=== PATIENT | male | born 1975 | race Caucasian/White ===

== ENCOUNTER 2022-02-11 13:28 | Emergency (ER) | payer SELFPAY ==
[2022-02-11 13:44] VITALS: BP 126/82; PULSE 67; TEMP 36.7; O2SAT 96; BMI 28.1
--- NOTE | 2022-02-11 13:53 | ED_ITS ---
HPI - General Adult General Time Seen by Provider: 13:54 Date Seen: 02/11/22 Chief complaint: Abdominal Pain Stated complaint: Possible Hernia Time Seen by Provider: 02/11/22 13:52 Source: patient and RN notes reviewed Mode of arrival: ambulatory Limitations: no limitations History of Present Illness HPI narrative: Patient is a 46-year-old male coming in with concern of possible left inguinal hernia. He is been having pain in bulging on the left side. He does do a lot of exercise and weightlifting and has not been able to do so the last couple weeks due to his symptoms. He feels when he standing up he has to hang onto his left groin otherwise it is more painful. Feels like the testicle is a little bit more high-riding on that side but otherwise is not noting testicular pain. There is no urinary symptoms with this. Last night at work he noted the swelling was quite prominent in that left lower groin/inguinal region. He is not had any nausea vomiting or fever with this. He has had an abdominal approach for lumbar back surgery but otherwise no other abdominal surgery, no known prior hernias. He cannot remember any inciting event or episode that this started after. It has been there for couple weeks. Initially few weeks ago he felt a little dizzy when he 1st noticed it, was having a lot of pain at the time. Related Data Allergies Allergy/AdvReac Type Severity Reaction Status Date / Time Penicillins Allergy Verified 02/11/22 13:44 Review of Systems Status of ROS: Reports: 6 or more systems reviewed and unremarkable except as noted in History and below PFSH PFS Social History Smoking Status: Current every day smoker What tobacco products do you use: cigarettes Years smoked: 34 Do you use any of these nicotine containing products: Vaping Products Second hand tobacco smoke exposure: Yes How often do you have a drink containing alcohol: never How often do you have six or more drinks on one occasion: Never AUDIT-C Alcohol total score: 0 Non-prescribed substance use: denies use service: No Exam Const: Vital Signs, click to edit/add: Vital Signs - 24 hr 02/11/22 13:44 Temperature 98.1 F Pulse Rate [Pulse Oximeter] 67 Blood Pressure [Ri ght Upper Arm] 126/82 Pulse Oximetry 96 Oxygen Delivery Me thod Room Air Documenting provider has reviewed patient's vital signs: yes Common normals: no apparent distress, average body habitus, oriented x3, no limitations, healthy appearing, alert and well nourished General appearance: cooperative, comfortable (Lying flat on the ED bed) and well kempt HENMT: Common normals: normocephalic, head/scalp atraumatic and hearing grossly normal bilaterally Head and scalp: normocephalic and atraumatic Eye: Common normals: PERRL, EOMs intact bilaterally, conjunctivae normal and no scleral icterus Conjunctiva: conjunctiva(e) normal Pupil: PERRL Neck & C-Spine: Common normals: full ROM, no lymphadenopathy and supple Resp: Common normals: normal respiratory effort, no retractions, no use of accessory muscles and clear to auscultation bilaterally Auscultation: clear to auscultation bilaterally Cardio: Common normals: regular rate, regular rhythm, S1 normal heart sound, S2 normal heart sound, no gallops and no clicks Rate: regular rate Rhythm: regular rhythm Heart sounds: S1 normal and S2 normal GI: Common normals: Normal to inspection, nondistended, normoactive bowel sounds present, soft to palpation, non-tender, no hepatosplenomegaly and no masses Palpation: soft and no hepatosplenomegaly : Common normals: testes normal, scrotum normal, no scrotal swelling and no hernias present (No palpable hernia on either side, examined lying and standing.) Neuro: Common normals: oriented x3 and gait normal Sensorium/orientation: alert Psych: Appearance: well kempt Course Course Hospital Course: Will obtain a scrotal ultrasound. Patient understands that he may need follow- up with General surgery. Does not seem like this is actually something to do with the testes or epididymis. He is pointing to pain more in the inguinal canal region where he is having symptoms. He certainly could have a hernia despite my a inability to palpated at this time, certainly does not rule out a hernia. Reevaluation(s) Reevaluation #1: Reviewed with patient the ultrasound is normal at this time. We did discuss other alternate etiologies including such things as a muscle pole. He could certainly have muscular injury. Although clinically on examination does not seem like it. I think if he has ongoing symptoms, would have 1 of her surgeons actually do a clinical exam on him. In the meantime he understands if he is worsening, develops the swelling in this inguinal region, has any associated vomiting or fever, would return to the ER for further evaluation. Time: 15:41 Vital Signs Vital signs: Initial Vital Signs Temperature 98.1 F 02/11/22 13:44 Temperature Source Temporal Artery Scan 02/11/22 13:44 Pulse Rate 67 02/11/22 13:44 Pulse Rhythm 02/11/22 13:44 Blood Pressure 126/82 02/11/22 13:44 Blood Pressure Mean 96 02/11/22 13:44 Blood Pressure Position Supine 02/11/22 13:44 Pulse Oximetry 96 02/11/22 13:44 Oxygen Delivery Method 02/11/22 13:44 Vital Signs Temperature 98.1 F 02/11/22 13:44 Pulse Rate 67 02/11/22 13:44 Blood Pressure 126/82 02/11/22 13:44 Pulse Oximetry 96 02/11/22 13:44 Oxygen Delivery Method 02/11/22 13:44 Temperature 98.1 F 02/11/22 13:44 Pulse Rate 67 02/11/22 13:44 Blood Pressure 126/82 02/11/22 13:44 Pulse Oximetry 96 02/11/22 13:44 Oxygen Delivery Method 02/11/22 13:44 Medical Decision Making Imaging Data Ultrasound scrotum: Attestation: I have reviewed the pertinent imaging results. Radiologist's impression: Patient: BERONICA DUENAS Facility:?[facility] Patient ID:?[id number] Site Patient ID:?[id number]. Site :?[id number] Study:?US Testicle -02/11/2022 3:00:51 PM Ordering Physician:Kristen Watson Final Report: Indication: Left inguinal/groin pain Technique: Sonography of the scrotum and its contents was performed. The left inguinal area was also specifically study. Grayscale and Doppler interrogation was performed Comparison: None Findings: The testes are normal in size. Echogenicity is normal. There is no focal mass. The right testis measures 4.7 x 2.3 x 3.5 centimeters and the left testis measures 4.6 x 2.3 x 3.1 centimeters. Normal blood flow is noted without evidence of hyperemia or evidence of torsion. The epididymides appear normal. No varicocele. No significant appearing hydrocele appearing No mass or hernia visualized in the left inguinal area at the area indicated to be painful by the patient Impression: Normal exam Dictated by Enrique Yanez MD @ 02/11/2022 3:35:55 PM (Electronic Signature) Critical Care Time Critical Care Time Critical Care Time: No Discharge Plan Discharge Clinical Impression: Left inguinal pain Patient Disposition: Home, Self-Care Condition: Stable Instructions: Inguinal Hernia (ED) Additional Instructions: Activity as tolerated, would not do any strenuous weightlifting until further evaluated. Contact the clinic to be scheduled to see our general surgeon for further evaluation. If the general surgeon does not feel that there is any reason for underlying inguinal hernia, than urology consult may be needed. Your primary care provider would half to schedule you to see Urology. Clinic number is [phone]. Stand Alone Forms: [employer] Info Instructions
--- NOTE | 2022-02-11 14:01 | CRLHL7_ITS ---
For Patients: As a result of the Century Cures Act, medical imaging exams and procedure reports are released immediately into your electronic medical record. You may view this report before your referring provider. If you have questions, please contact your health care provider. Indication: Left inguinal/groin pain Technique: Sonography of the scrotum and its contents was performed. The left inguinal area was also specifically study. Grayscale and Doppler interrogation was performed Comparison: None Findings: The testes are normal in size. Echogenicity is normal. There is no focal mass. The right testis measures 4.7 x 2.3 x 3.5 centimeters and the left testis measures 4.6 x 2.3 x 3.1 centimeters. Normal blood flow is noted without evidence of hyperemia or evidence of torsion. The epididymides appear normal. No varicocele. No significant appearing hydrocele appearing No mass or hernia visualized in the left inguinal area at the area indicated to be painful by the patient Impression: Normal exam Dictated by Enrique Yanez MD @ 02/11/2022 3:35:55 PM (Electronically Signed)
== END 2022-02-11 15:53 | disposition home or self-care (01) ==
PROVIDERS: Emergency Provider Family Medicine
DX: R10.30 Lower abdominal pain, unspecified (principal)
CPT/HCPCS: 76870; 93976; 99283

== ENCOUNTER 2022-02-23 02:57 | Emergency (ER) | payer SELFPAY ==
[2022-02-23 03:46] VITALS: BP 148/89; PULSE 76; RESP 16; TEMP 37.2; O2SAT 99
--- NOTE | 2022-02-23 03:55 | ED.GENADULT ---
HPI - General Adult General Time Seen by Provider: 03:55 Date Seen: 02/23/22 Chief complaint: Urogenital Problems, Male Stated complaint: Hernia Time Seen by Provider: 02/23/22 03:47 Source: patient Mode of arrival: ambulatory Limitations: no limitations History of Present Illness HPI narrative: 46-year-old male who comes in today with left groin and inguinal pain. This been off and on for the last several weeks. Patient came in today because he was concerned that he has a strangulated or incarcerated hernia. He reports alternating constipation and diarrhea, no urinary symptoms, no testicular pain. He says he feels like he has a lump in his scrotum that has a variable size. He he says it seems bigger in the morning and then get some better. Denies any nausea vomiting. No abdominal distention or abdominal pain. This previously seen for this and had a testicular ultrasound done. Reviewed those results, negative ultrasound. Related Data Home Medications Medication Instructions Recorded Confirmed No Known Home Medications 02/23/22 02/23/22 Allergies Allergy/AdvReac Type Severity Reaction Status Date / Time Penicillins Allergy Verified 02/11/22 13:44 Review of Systems Status of ROS: Reports: 10 or more systems reviewed and unremarkable except as noted in History and below [facility] Surgical History (Updated 02/23/22 @ 03:50 by Anamaria Hanna RN) Previous back surgery Social History Smoking Status: Current every day smoker What tobacco products do you use: cigarettes Smoking packs per day: 0.25 Smoking cigarettes per day: 5.0 Years smoked: 34 Smoking pack-years: 8.50 Do you use any of these nicotine containing products: Vaping Products Second hand tobacco smoke exposure: Yes How often do you have a drink containing alcohol: never How often do you have six or more drinks on one occasion: Never AUDIT-C Alcohol total score: 0 Non-prescribed substance use: denies use service: No Exam Narrative: Exam Narrative: General: Well-developed and well-nourished, no acute distress Head: Atraumatic and normocephalic Eyes: Pupils are equal reactive, extraocular motions intact, conjunctiva clear ENT: External nose and ears are normal, posterior pharynx without erythema or exudate Neck: No midline cervical tenderness, full spontaneous range of motion the neck, trachea midline, no adenopathy Heart: Regular rate and rhythm no murmurs or thrills Lungs: Clear to auscultation bilaterally without wheezes or crackles Abdomen: Soft, nontender, nondistended with active bowel sounds : Testicles palpable bilaterally with no tenderness or masses, no inguinal defect, no fluid or swelling along the spermatic cord on either side. The area where patient describes his lump is actually on the posterior scrotum, no mass palpable at this time. Musculoskeletal: No tenderness, deformity, or edema Neurologic: Awake, alert, and oriented x3, no gross focal neurologic deficits, cranial nerves intact as tested Psych: Mood and affect are appropriate Skin: No rashes Const: Vital Signs, click to edit/add: Vital Signs - 24 hr 02/23/22 03:46 Temperature 98.9 F Pulse Rate [Left P ulse Oximeter] 76 Respiratory Rate 16 Blood Pressure [Le ft Upper Arm] 148/89 H Pulse Oximetry 99 Oxygen Delivery Me thod Room Air Course Course Hospital Course: Patient seen and examined, prior records are reviewed. Patient concerned about a of the left hemiscrotum. On exam here, no testicular pain, tenderness, or mass to suggest testicular cancer or epididymitis. No inguinal swelling or tenderness. Area patient's pain is posterior scrotum, not really in the inguinal canal. This could represent a femoral hernia. Patient has follow-up with surgery next week. At this point, no indication of incarcerated nor strangulated hernia. Vital Signs Vital signs: Initial Vital Signs Temperature 98.9 F 02/23/22 03:46 Temperature Source Temporal Artery Scan 02/23/22 03:46 Pulse Rate 76 02/23/22 03:46 Respiratory Rate 16 02/23/22 03:46 Blood Pressure 148/89 H 02/23/22 03:46 Blood Pressure Mean 108 02/23/22 03:46 Blood Pressure Position Sitting 02/23/22 03:46 Pulse Oximetry 99 02/23/22 03:46 Oxygen Delivery Method 02/23/22 03:46 Vital Signs Temperature 98.9 F 02/23/22 03:46 Pulse Rate 76 02/23/22 03:46 Respiratory Rate 16 02/23/22 03:46 Blood Pressure 148/89 H 02/23/22 03:46 Pulse Oximetry 99 02/23/22 03:46 Oxygen Delivery Method 02/23/22 03:46 Temperature 98.9 F 02/23/22 03:46 Pulse Rate 76 02/23/22 03:46 Respiratory Rate 16 02/23/22 03:46 Blood Pressure 148/89 H 02/23/22 03:46 Pulse Oximetry 99 02/23/22 03:46 Oxygen Delivery Method 02/23/22 03:46 Medical Decision Making Medical Records Medical records reviewed: Yes I reviewed the patient's medical records Lab Data Lab results reviewed: Yes I reviewed the patient's lab results Discharge Plan Discharge Prescriptions: No Action No Known Home Medications Follow Up/Referrals: Provider,Not a Local [Primary Care Provider] -
== END 2022-02-23 04:18 | disposition home or self-care (01) ==
LOC: ED 04:08
PROVIDERS: Emergency Provider Family Medicine
DX: N50.82 Scrotal pain (principal)
CPT/HCPCS: 99282; 99283

== ENCOUNTER 2023-05-11 12:50 | Outpatient (CLI) | payer MEDICARE, SELFPAY ==
--- OUTSIDE RECORDS SUMMARY | 2023-05-11 12:52 | XMS_ITS | Clinical Summary ---
Author Name Unknown Organization [facility] Address [address] [place] [address]. [place] [address] Care Team Providers Care Patient Consumer Marketer Name Role Phone No Ref-Primary, Physician Primary Care Provider Emily Rucker MD Unavailable Allergies No known active allergies Medications No known medications Social History Tobacco Use Types Packs/Day Years Used Date Smoking Tobacco: Every Day Cigarettes Passive Smoke Exposure: Current Smokeless Tobacco: Never Tobacco Cessation:Ready to Q uit: No; Counseling Given: No Alcohol Use Standard Drinks/Week Comments Not Currently 0 (1 standard drink = 0.6 oz pur e alcohol) PHQ-2 Answer Date Recorded PHQ-2 Score 0 07/12/2022 Adolescent Education Answer Date Record ed Getting School Help Needed Not on file 12/25 Sex and Gender Information Value Date Recorded Sex Assigned at Not on file Gender Identity Not on file Sexual Orientation Not on file Last Filed Vital Signs Vital Sign Reading Time Taken Comments Blood Pressure 130/85 07/12/2022 8:43 AM CDT Pulse 85 07/12/2022 8:43 AM CDT Temperature 36.4 ??C (97.5 ??F) 07/12/2022 8:43 AM CD T Respiratory Rate 18 07/12/2022 8:43 AM CDT Oxygen Saturation 97% 07/12/2022 8:43 AM CDT Inhaled Oxygen Concentration - - Weight 87.6 kg (193 lb 3.2 oz) 07/12/2022 8:43 A M CDT Height 175.3 cm (5' 9) 07/12/2022 8:43 AM CDT Body Mass Index 28.53 07/12/2022 8:43 AM CDT Plan of Treatment Health Maintenance Due Date Last Done Comments ANNUAL REVIEW OF HM ORDERS 1973 CT COLONOGRAPHY 1973 FIT 1973 FLEX SIG 1973 HEPATITIS B IMMUNIZATION (1 of 3 - 3-dose series) 1973 NICOTINE/TOBACCO CESSATION COUNSELING Q 1 YR 1973 YEARLY PREVENTIVE VISIT 1973 sDNA (Cologuard) 1973 COVID-19 Vaccine (#1) 05/24/1974 Pneumococcal Vaccine: Pediatrics (0 to 5 Years) and At-Risk Patients (6 to 64 Years) (1 of 2 - PCV) 11/22/1979 COLONOSCOPY 11/22/1983 COLORECTAL CANCER SCREENING 11/22/1983 HIV SCREENING 1988 HEPATITIS C SCREENING 11/22/1991 DTAP/TDAP/TD IMMUNIZATION (1 - Tdap) 1998 LIPID 2008 INFLUENZA VACCINE (#1) 2022 ZOSTER IMMUNIZATION (1 of 2) 11/22/2023 ADVANCE CARE PLANNING 07/13/2027 07/12/2022 (Decline d) PHQ-2 (once per calendar year) Completed 07/12/2022 HPV IMMUNIZATION Aged Out No longer e ligible based on patient's age to complete this topic IPV IMMUNIZATION Aged Out No longer e ligible based on patient's age to complete this topic MENINGITIS IMMUNIZATION Aged Out No l onger eligible based on patient's age to complete this topic RSV MONOCLONAL ANTIBODY Aged Out No l onger eligible based on patient's age to complete this topic Care Teams Patient Consumer Marketer Relationship Specialty Start Date End Date No Ref-Primary, Physician PCP - General 07/12/22 Emily Rucker MD [address] [place] [address] Assigned PCP 06/16/22
--- OUTSIDE RECORDS SUMMARY | 2023-05-11 12:52 | XMS_ITS | Encounter Summary ---
Author Name Unknown Organization [facility] Address [address] [place] [address] Care Team Providers Care Dry Cell Assembly Supervisor Name Role Phone No Ref-Primary, Physician Primary Care Provider Emily Rucker MD Unavailable Encounter Details Date Type Department Care Team (Latest Contact Info) Description 07/12/2022 Travel Social History Tobacco Use Types Packs/Day Years Used Date Smoking Tobacco: Every Day Cigarettes Passive Smoke Exposure: Current Smokeless Tobacco: Never Alcohol Use Standard Drinks/Week Comments Not Currently 0 (1 standard drink = 0.6 oz pur e alcohol) PHQ-2 Answer Date Recorded PHQ-2 Score 0 07/12/2022 Sex and Gender Information Value Date Recorded Sex Assigned at Not on file Gender Identity Not on file Sexual Orientation Not on file COVID-19 Exposure Response Date Recorded In the last 10 days, have yo u been in contact with someone who was confirmed or suspected to have Coronavirus/COVID-19? No / Unsure 07/12/2022 8:38 AM CDT documented as of this encounter Plan of Treatment Not on file documented as of this encounter Visit Diagnoses Not on filedocumented in this encounter Care Teams Dry Cell Assembly Supervisor Relationship Specialty Start Date End Date No Ref-Primary, Physician PCP - General 07/12/22 Emily Rucker MD [address] [place] [address] Assigned PCP 06/16/22 documented as of this encounter
--- OUTSIDE RECORDS SUMMARY | 2023-05-11 12:52 | XMS_ITS | Encounter Summary ---
Author Name Unknown Organization [place] Address [address] [facility] [place] [address] Care Team Providers Care Ad Operations Intern Name Role Phone No Ref-Primary, Physician Primary Care Provider Emily Rucker MD Unavailable Reason for Referral * Consultation (Priority: 1-2 Weeks) - Referral NOT Required Specialty Diagnoses / Procedures Referred By Ru park Referred To Contact Gastroenterology Diagnoses Special screening for malignant neoplasms, colon BRBPR (bright red blood per rectum) Emily Rucker MD [address] [place] [address] Referral ID Status Reason Start Date Expiration Date V isits Requested Visits Authorized [id number] Referral NOT Required 07/12/2022 07/12/2023 1 1 Question Answer Service: Screening Sedation Concerns: No medical conditions affecting sedation Sedation Type: Moderate/Conscious Sedation Preferred Location: [facility] Scheduling Instructions: [facility] will call you to coordinate your care as prescribed by the provider. If you don? t hear from a passenger representative within 2 business days, please call . Comments Please be aware that coverage of these services is subject to the terms and limitations of your health insurance plan. Call member services at your health plan with any benefit or coverage questions. [facility] will call you to coordinate your care as prescribed by the provider. If you don? t hear from a passenger representative within 2 business days, please call . * Consultation (Routine: Next available opening) - Referral NOT Required Specialty Diagnoses / Procedures Referred By Contmaria fernanda t Referred To Contact Surgery Diagnoses Abdominal pain, unspecified abdominal location Emily Rucker MD [address] [address] [facility] [address] [place] [address] Referral ID Status Reason Start Date Expiration Date V isits Requested Visits Authorized [id number] Referral NOT Required 07/12/2022 07/12/2023 1 1 Question Answer Preferred Location: [facility] [place] Scheduling Instructions: Please call to schedule your appointment Comments Please be aware that coverage of these services is subject to the terms and limitations of your health insurance plan. Call member services at your health plan with any benefit or coverage questions. Please call to schedule your appointment Reason for Visit * Reason Comments Hernia Patient is being see n for an possible hernia dull achy pain. Encounter Details Date Type Department Care Team (Late st Contact Info) Description 07/12/2022 9:00 AM CDT Office Visit [facility] [address] [place] [address] Emily Rucker MD [address] [place] [address] Abdominal pain, left side -- suspect hernia (Primary Dx); Special screening for malignant neoplasms, colon; BRBPR (bright red blood per rectum) Social History Tobacco Use Types Packs/Day Years [...] Recorded In the last 10 days, have johan hooker been in contact with someone who was confirmed or suspected to have Coronavirus/COVID-19? No / Unsure 07/12/2022 8:38 AM CDT documented as of this encounter Last Filed Vital Signs Vital Sign Reading [...] Mass Index 28.53 07/12/2022 8:43 AM CDT documented in this encounter Patient Instructions * Patient Instructions* Emily Rucker MD - 07/12/2022 9:00 AM CDT Plan: 1. Labs today - [address] 2. Surgeon referral 3. Colonoscopy 4. It would help if you have the CT images uploaded in our system before you see the surgeon documented in this encounter Progress Notes * Emily Rucker MD - 07/12/2022 9:00 AM CDT Patient's instructions / PLAN: Plan: 1. Labs today - [address] 2. Surgeon referral 3. Colonoscopy [place] [facility] fax for procedures: [phone] [place] [facility] phone: [phone] 4. It would help if you have the CT images uploaded in our system before you see the surgeon ASSESSMENT & PLAN: (R10.9) Abdominal pain, left side -- suspect Spigelian hernia (primary encounter diagnosis) Comment: Plan: Adult General Surg Referral, CBC with platelets, Comprehensive metabolic panel (Z12.11) Special screening for malignant neoplasms, colon Comment: Plan: Colonoscopy Screening Cyber Defense Analyst Referral (K62.5) BRBPR (bright red blood per rectum) Comment: Plan: Colonoscopy Screening Cyber Defense Analyst Referral Chief Complaint: L Abdominal wall pain SUBJECTIVE: History of present illness Abd pain -- about 6 months ago he noticed a buldge in the L side of the abdomen -- he had scrotim swelling and he was prescribed antibiotics -- he was eval in [place] and he was told he doesn't have a hernia -- Since that eval he continues to feel ache in the L side of the abdome and groin -- sometimes pain after eating ROS: ROS: negative for fever, chills, cough, wheezes, chest pain, shortness of breath, vomiting, leg swelling Pos for abd pain , as above OBJECTIVE: Physical Exam : Blood pressure 130/85, pulse 85, temperature 97.5 ??F (36.4 ??C), temperature source Tympanic, resp. rate 18, height 1.753 m (5' 9), weight 87.6 kg (193 lb 3.2 oz), SpO2 97 %. NAD, appears comfortable Skin: no rashes Neck: supple, no JVD, No thyroidmegaly. Lymph nodes nonpalpable cervical and supraclavicular. Chest: clear to auscultation bilaterally, good respiratory effort Heart: S1 S2, RRR, no mgr appreciated Abdomen: soft. no hepatosplenomegaly or masses appreciated, no abdominal bruit, present bowel sounds. Patient has tenderness on the left side of abdomen just above the iliac crest. While standing, this area might look a little bit bigger compared with the right side, but I am not sure Extremities: no edema, Neurologic: A, Ox3, no focal signs appreciated PMHx: reviewed History reviewed. No pertinent past medical history. PSHx: reviewed History reviewed. No pertinent surgical history. Meds: reviewed No current outpatient medications on file. Soc Hx: reviewed Fam Hx: reviewed Chart documentation was completed, in part, with [employer] voice-recognition software. Even though reviewed, some grammatical, spelling, and word errors may remain. Emily Abernathy MD Internal Medicine documented in this encounter Plan of Treatment Scheduled Referrals Name Type Priority Associated Diagnoses Order Schedule Adult General Surg Referral Referral Routine: Next available opening Abdominal pain, left side -- suspect hernia Expected: 07/12/2022 (Approximate), Expires: 07/13/2023 Colonoscopy Screening Cyber Defense Analyst Referral Referral Priority: 1-2 Weeks Special screening for malignant neoplasms, colon BRBPR (bright red blood per rectum) Expected: 07/12/2022 (Approximate), Expires: 07/13/2023 documented as of this encounter Procedures Procedure Name Priority Date/Time Associated Diagnosis Comments COMPREHENSIVE METABOLIC PANEL Routine 07/12/2022 9:56 AM CDT Abdominal pain, left side -- suspect hernia CBC WITH PLATELETS Routine 07/12/2022 9: 56 AM CDT Abdominal pain, left side -- suspect hernia documented in this encounter Results * (ABNORMAL) Comprehensive metabolic panel (07/12/2022 9:56 AM CDT) Sodium 144 136 - 145 mmol/L 07/12/2022 10:05 PM CDT [facility] Potassium 4.1 3.4 - 5.3 mmol/L 07/12/2022 10:05 PM CDT [facility] Chloride 104 98 - 107 mmol/L 07/12/2022 10:05 PM CDT [facility] Carbon Dioxide (CO2) 24 22 - 29 mmol/L 07/12/2022 10:05 PM CDT [facility] Anion Gap 16(H) 7 - 15 mmol/L 07/12/2022 10:05 PM CDT [facility] Urea Nitrogen 13.9 6.0 - 20.0 mg/dL 07/12/2022 10:05 PM CDT [facility] Creatinine 1.27(H) 0.67 - 1.17 mg/dL 07/12/2022 10:05 PM CDT [facility] Calcium 9.9 8.6 - 10.0 mg/dL 07/12/2022 10:05 PM CDT [facility] Glucose 88 70 - 99 mg/dL 07/12/2022 10:05 PM CDT [facility] Alkaline Phosphatase 52 40 - 129 U/L 07/12/2022 10:05 PM CDT [facility] AST 25 10 - 50 U/L 07/12/2022 10:05 PM CDT [facility] ALT 30 10 - 50 U/L 07/12/2022 10:05 PM CDT [facility] Protein Total 7.9 6.4 - 8.3 g/dL 07/12/2022 10:05 PM CDT [facility] Albumin 4.8 3.5 - 5.2 g/dL 07/12/2022 10:05 PM CDT [facility] Bilirubin Total 0.5 <=1.2 mg/dL 07/12/2022 10:05 PM CDT [facility] GFR Estimate 70 >60 mL/min/1.7 3m2 07/12/2022 10:05 PM CDT [facility] Comment:eGFR calculated us2020 CKD-EPI equation. Blood BLOOD SPECIMEN / Unknown Venipuncture / Unknown 07/12/2022 9:56 AM CDT 07/12/2022 10:04 AM CDT Emily Rucker MD LAB - B LOOD ORDERABLES [facility] [address] [facility], [address] [place] [phone], [facility] [phone] * CBC with platelets (07/12/2022 9:56 AM CDT) WBC Count 10.4 4.0 - 11.0 10e3/uL 07/12/2022 10:14 AM CDT [facility] RBC Count 5.77 4.40 - 5.90 10e6/uL 07/12/2022 10:14 AM CDT [facility] Hemoglobin 17.7 13.3 - 17.7 g/dL 07/12/2022 10:14 AM CDT [facility] Hematocrit 49.4 40.0 - 53.0 % 07/12/2022 10:14 AM CDT [facility] MCV 86 78 - 100 fL 07/12/2022 10:14 AM CDT [facility] MCH 30.7 26.5 - 33.0 pg 07/12/2022 10:14 AM CDT [facility] MCHC 35.8 31.5 - 36.5 g/dL 07/12/2022 10:14 AM CDT [facility] RDW 11.9 10.0 - 15.0 % 07/12/2022 10:14 AM CDT [facility] Platelet Count 224 150 - 450 10e3/uL 07/12/2022 10:14 AM CDT [facility] Blood BLOOD SPECIMEN / Unknown Venipuncture / Unknown 07/12/2022 9:56 AM CDT 07/12/2022 10:04 AM CDT Emily Rucker MD LAB - B LOOD ORDERABLES [facility] [address], [address] [place] [address], [facility] [phone] documented in this encounter Visit Diagnoses Diagnosis Abdominal pain, left side -- suspect hernia- Primary Special screening for malignant neoplasms, colon BRBPR (bright red blood per rectum) Hemorrhage of rectum and anus documented in this encounter Care Teams Ad Operations Intern Relationship Specialty Start Date End Date No Ref-Primary, Physician PCP - General 07/12/22 Emily Rucker MD [address] [place] [address] Assigned PCP 06/16/22 documented as of this encounter
--- OUTSIDE RECORDS SUMMARY | 2023-05-11 12:52 | XMS_ITS | Clinical Summary ---
Author Name Unknown Organization [facility] Address [place], [place] [address] Care Team Providers Care Patent Prosecution Attorney Name Role Phone Pcp, No Primary Care Provider Unavailabl e Allergies Active Allergy Reactions Criticality Noted Date Comments Penicillins Rash 03/01/2023 Medications No known medications Encounters Date Type Department Care Team Description 03/11/2023 Telephone [facility] [id number] [place] [phone] Aryan Mccurdy MD Letter (Medical leave of Absence ) 03/10/2023 9:45 AM SHEET CUTTER Ancillary Procedure [facility] [address] [place] [address] 03/10/2023 9:00 AM SHEET CUTTER Ancillary Procedure [facility] [address] [place] [address] 03/10/[address] [phone] Aryan Mccurdy MD Results (US SCROTUM WITH DUPLEX) 03/10/2023 Orders Only [address] [phone] Aryan Mccurdy MD <No scans attached> 03/10/2023 Travel 03/01/2023 11:30 AM SHEET CUTTER Office Visit [address] [phone] Aryan Mccurdy MD Pain In Side (A year ago he lifted a barrel full of liquid and twisted while he lifted./Pulled something left side down to his testicles. Was evaluated and told it wasn't a hernia. Surgeon in [place] said it could be a sports hernia./Bulge on the left side when stretches./Aching. Shooting pain at times. /Still can't work out. Was previously working out daily./The last 2 weeks it gets very tight, his side swells up, and he gets blood weeping from his genitals/testicle. No wounds/sores./Home treatments: None.); Testicle Pain 03/01/2023 Travel from Last 3 Months Social History Tobacco Use Types Packs/Day Years Used Date Smoking Tobacco: Every Day Cigarettes Smokeless Tobacco: Never Tobacco Cessation:Ready to Q uit: Yes; Counseling Given: Yes Alcohol Use Standard Drinks/Week Comments Yes 0 (1 standard drink = 0.6 oz pur e alcohol) Rarely Social Connections Answer Date Recorded Frequency of Communication with Friends and Fami ly 0 03/01/2023 Financial Resource Strain Answer Date R ecorded Difficulty of Paying Living Expenses 3 03/01/2023 Difficulty of Paying Living Expenses Not on file 03/01/2023 Food Insecurity Answer Date Recorded Worried About Running Out of Food in the Last Ye ar 1 03/01/2023 Transportation Needs Answer Date Record ed Lack of Transportation (Medical) 1 03/01/2023 Housing Stability Answer Date Recorded Unable to Pay for Housing in the Last Year 1 03/01/2023 Sex and Gender Information Value Date Recorded Sex Assigned at Not on file Gender Identity Not on file Sexual Orientation Not on file Obstetrics History Last Filed Vital Signs Vital Sign Reading Time Taken Comments Blood Pressure 124/88 03/01/2023 11:30 AM SHEET CUTTER Pulse 75 03/01/2023 11:27 AM SHEET CUTTER Temperature 36.7 ??C (98 ??F) 03/01/2023 11:27 AM SHEET CUTTER Respiratory Rate - - Oxygen Saturation 98% 03/01/2023 11:27 AM SHEET CUTTER Inhaled Oxygen Concentration - - Weight 87.4 kg (192 lb 9.6 oz) 03/01/2023 11:27 AM SHEET CUTTER Height - - Body Mass Index - - Plan of Treatment Health Maintenance Due Date Last Done Comments COVID-19 vaccine series (#1) 05/24/1974 Pneumococcal series for age 6-64 (1 of 2 - PCV) 1979 Tdap 1984 Depression screening for age 12+ 1985 HIV for age 15-65 1988 BMI (ht and wt on same day) for age 18+ 11/22/1991 Hepatitis C screening for age 18-79 11/22/1991 Tetanus booster 1993 Colonoscopy through age 75 2018 Lipids for age 45-75 2018 Influenza for age 9-49 12/03/2022 Procedures Procedure Name Priority Date/Time Associated Diagnosis Comments US SCROTUM WITH DUPLEX BAUDILIO 03/10/2023 10:52 AM SHEET CUTTER Scrotal swelling US ABDOMEN SOFT TISSUE BAUDILIO 03/10/2023 10:52 AM SHEET CUTTER Flank pain Injury of flank, initial encounter from Last 3 Months Results * US SCROTUM WITH DUPLEX (03/10/2023 10:52 AM SHEET CUTTER) Anatomical Region Laterality Modality SCROTUM, TESTES Ultrasound 03/10/2023 3:18 PM SHEET CUTTER Impressions 03/10/2023 3:18 PM SHEET CUTTER Normal scrotal ultrasound. Dictated by Josep Faustin MD @ Mar ??7 2022 ??3:18PM (Electronically Signed) ?? Narrative 03/10/2023 3:18 PM SHEET CUTTER For Patients: ??As a result of the Cures Act, medical imaging exams and procedure reports are released immediately into your electronic medical record. ??You may view this report before your referring provider. ??If you have questions, please contact your health care provider. INDICATION: Left-sided pain COMPARISON: none TECHNIQUE: Pelletier scale imaging was performed of the scrotum. In addition color Doppler and spectral Doppler analysis was performed of the testes. FINDINGS: The testes demonstrate normal arterial and venous blood flow on color Doppler and spectral Doppler analysis. The testes have uniform echogenicity with no evidence of a suspicious mass or area of inflammation. The right testis measures 4.9 x 3.1 x 2.4 cm in size and the left testis measures 5.1 x 3.1 x 2.3 cm. The epididymis appears normal bilaterally. There is no evidence of a hydrocele or varicocele. No evidence of left inguinal hernia. Procedure Note Josep Faustin MD - 03/10/2023 For Patients: As a result of the Cures Act, medical imagingexams and procedure reports are released immediately into your electronicmedical record. You may view this report before your referring provider.If you have questions, please contact your health care provider. INDICATION: Left-sided pain COMPARISON: none TECHNIQUE: Pelletier scale imaging was performed of the scrotum. In addition color Dopplerand spectral Doppler analysis was performed of the testes. FINDINGS: The testes demonstrate normal arterial and venous blood flow on colorDoppler and spectral Doppler analysis. The testes have uniformechogenicity with no evidence of a suspicious mass or area ofinflammation. The right testis measures 4.9 x 3.1 x 2.4 cm in size and theleft testis measures 5.1 x 3.1 x 2.3 cm. The epididymis appears normalbilaterally. There is no evidence of a hydrocele or varicocele. Noevidence of left inguinal hernia. IMPRESSION: Normal scrotal ultrasound. Dictated by Josep Faustin MD @ Mar 10 2023 3:18PM (Electronically Signed) Aryan Mccurdy MD US * US ABDOMEN SOFT TISSUE (03/10/2023 10:52 AM SHEET CUTTER) Anatomical Region Laterality Modality Abdomen Ultrasound 03/13/2023 11:4 8 AM SHEET CUTTER Narrative 03/13/2023 11:48 AM SHEET CUTTER For Patients: ??As a result of the s , medical imaging exams and procedure reports are released immediately into your electronic medical record. ??You may view this report before your referring provider. ??If you have questions, please contact your health care provider. Indication: Pain/lump Technique: Grayscale ultrasound of the left groin region performed with and without Valsalva in the standing and supine positions. Comparison: None Findings: No fluid collection or mass. No adenopathy or hernia. Impression: Negative sonogram left inguinal soft tissues. Dictated by Josep Faustin MD @ Mar 13 2023 11:48AM (Electronically Signed) ?? Procedure Note Josep Faustin MD - 03/13/2023 For Patients: As a result of the 21st Century Cures Act, medical imagingexams and procedure reports are released immediately into your electronicmedical record. You may view this report before your referring provider.If you have questions, please contact your health care provider. Indication: Pain/lump Technique: Grayscale ultrasound of the left groin region performed with and withoutValsalva in the standing and supine positions. Comparison: None Findings: No fluid collection or mass. No adenopathy or hernia. Impression: Negative sonogram left inguinal soft tissues. Dictated by Josep Faustin MD @ Mar 13 2023 11:48AM (Electronically Signed) Aryan Mccurdy MD from Last 3 Months Care Teams Patent Prosecution Attorney Relationship Specialty Start Date End Date Pcp, No . PCP - General 02/27/23
--- OUTSIDE RECORDS SUMMARY | 2023-05-11 12:52 | XMS_ITS | Referral Summary ---
Author Name Unknown Organization [place] Address [address] [facility] [place] [address] Care Team Providers Care Millinery Department Manager Name Role Phone No Ref-Primary, Physician Primary [...] 07/12/2022 8:43 AM CDT Plan of Treatment Not on file Care Teams Millinery Department Manager Relationship Specialty Start Date End Date No Ref-Primary, Physician PCP - General 07/12/22 Emily Rucker MD [address] [place] [address] Assigned PCP 06/16/22
--- OUTSIDE RECORDS SUMMARY | 2023-05-11 12:53 | XMS_ITS | Data Portability ---
Author Name Unknown Address [address] [place] [address] Phone [phone] Organization [facility], [employer] Address [address] [place] [address] Care Team Providers Care Licensed Psychologist Director Name Role Phone [facility] Primary Care Pr ovider Assessment Encounter Date Assessment Date Assessment LastModified by Organization Details LastModified Time 04/07/2023 04/07/2023 47 year old male with left scrotal swelling and pain and erectile dysfunction. Not available 04/07/2023 08:58:49 Plan of Treatment Reminders Order Date Submit Date Provider Last Modified By Organization Details Last Modified Time Details Appointments None recorded. Lab None recorded. Referral pelvic floor therapy referral - Please contact patient to schedule 2023 [facility], [address] [place] [address], [id number], 09:05:23 Procedures None recorded. Surgeries None recorded. Imaging None recorded. Medication Orders sildenafil 50 mg tablet 2023 024 [facility], [address] [place] [address], [id number], 09:01:14 Patient TargetsNo targets recorded. Patient Instructions Encounter Date Encounter Id Patient Instructions Last Modified By Organization Details Last Modified Time 04/07/2023 [id number] Pelvic floor dysfunction/testicle pain: I suspect this is secondary to what was likely a pelvic floor injury 1 year ago. I recommend a course of pelvic floor physical therapy. He would like to do. Erectile dysfunction: We discussed the use of phosphodiesterase inhibitors. We discussed this is often a first line therapy for men as it is discreet and can be utilized quickly on an as needed basis. We discussed that this is administered 30-60 minutes before intercourse on an empty stomach. We discussed side effects including flushing, vision changes (blue light vision), hypotension when combined with nitrates, and notably priapism. We discussed in the event of an erection lasting more than 4 hours this is an emergency and he must go to the nearest Emergency Department. Start sildenafil 50 mg as needed. Not available 04/07/2023 08:58:24 Reason for Referral Pelvic Floor Therapy Referra l for Pain of left testicle Please contact patient to schedule Referring Physician: Jose Lovett, Urology, Encounter Date: 04/07/2023 Results Created Date Observation Date Name Description Value Unit Range Abnormal Flag LastModifiedBy Organization Detail LastModifiedTime 04/06/19 24 03/10/2023 US, scrot um No observ ation record ed. Not Available 04/07/2023 07:48:15 Result Notes None recorded. Problems Name Status Onset Date Resolution Date Notes Provider Name and Address Organization Details Recorded Time Swelling of scrotum Active 4 Stefano lozano [facility] 04/07/2023 08:51:39 Pain of left testicle Active 4 Stefano lozano [facility] 04/07/2023 08:51:52 Problem Notes None recorded. Procedures Surgical History None recorded. Imaging Results Imaging Date Name Status LastModified by Organiz ation Details LastModified Time 03/10/2023 US, scrotum completed Information n ot available 04/07/2023 07:48:15 Procedure Notes None recorded. Medical Equipment None Reported. Allergies No known drug allergies Medications Name Sig Start Date Stop Date Status Note LastModified by Organization Details LastModified Time sildenafi l 50 mg tablet Take 1 tablet every day by oral route as needed. 2023 active Take 1 hour prior to sexual activity. Not Available Not Available Not Available ciproflox acin 500 mg tablet TAKE 1 TABLET BY MOUTH TWICE DAILY 04/05 completed Not Available Not Available Not Available sildenafi l 100 mg tablet Take 1 tablet every day by oral route as needed. 2023 active Take 1 hour prior to intercour se on an empty stomach Not Available Not Available Not Available Vitals Date Recorded Body mass index (BMI) Body weight Body height Provider Name and Address Organization Details Last Updated DateTime 04/07/2023 28.1 kg/m2 31815.27747 49329 g 175.26 cm Not Available Health Note 04/07/2023 08:42:29 Social History Question Answer Notes LastModified by Organizat ion Details LastModified Time Tobacco Smoking Status Current Every Day Smoker Not Available Health Note 04/03/2023 10:06:21 What Is Your Level Of Alcohol Consumption? None Information not available 04/07/2023 What Is Your Level Of Caffeine Consumption? Moderate [email or web address] Information not available 04/03/2023 How Much Tobacco Do You Chew? None [email or web address] Information not available 04/03/2023 Do You Or Have You Ever Used E-cigarettes Or Vape? Current User Of Electronic Cigarettes [email or web address] Information not available 04/03/2023 What Was The Date Of Your Most Recent Tobacco Screening? 04/07/2023 [email or web address] Information not available 04/03/2023 What Is Your Relationship Status? [email or web address] Information not available 04/03/2023 Are You Sexually Active? Yes [email or web address] Information not available 04/03/2023 Do You Or Have You Ever Used Smokeless Tobacco? Never Used Smokeless Tobacco [email or web address] Information not available 04/03/2023 How Much Tobacco Do You Smoke? 1 PPD [email or web address] Information not available 04/03/2023 Do You Use Any Illicit Or Recreational Drugs? No [email or web address] Information not available 04/03/2023 Has Tobacco Cessation Counseling Been Provided? Yes Information not available 04/07/2023 On What Date Was Tobacco Cessation Counseling Provided? 04/07/2023 Information not available 04/07/2023 How Many Years Have You Smoked Tobacco? 34 [email or web address] Information not available 04/03/2023 Do You Or Have You Ever Used Any Other Forms Of Tobacco Or Nicotine? Yes Information not available 04/07/2023 How Many Days In The Past Year Have You Consumed 5 Or More Drinks? 0 [email or web address] Information no t available 04/03/2023 Sex: Male Functional Status None recorded. Mental Status None recorded. Family History Relationship Description Onset Age of this Age Resolved Age Notes Father No current problems or disability Mother No current problems or disability Medical History Condition Response High Blood Pressure N Kidney Stones N Depression N Lung Disease N GERD/Acid Reflux N Diabetes N Sexually Transmitted Infection N Bleeding Disorder N Cancer N High Cholesterol N Heart Disease N Past Encounters Encounter ID Performer Location Encounter Start Date Encounter Closed Date Diagnosis/Indication [id number] Jose Lovett MD [facility] [address] [facility],[address] [place] [address] 04/07/2023 08:42:21 04/07/2023 09:00:25 Swelling of scrotum Pain of left testicle Pelvic floor dysfunction Erectile dysfunction Health Concerns Section Related Observation LastModified by Organization Detai ls LastModified Time None Recorded Concern Status LastModified by Organization Details LastModified Time None Recorded Advance Directives Directive None Recorded Payers Encounter Date Sequence Insurance Name Policy Number Policy Magana Covered Member ID Magana Member ID Guarantor Name 04/07/2023 *SELF PAY* Bill Chong Notes Date Note Type Note Provider Name and Address Organization Details Recorded Time 04/07/2023 text/html HPI Notes: This is a 47 year old male who is referred by Dr. Mccurdy for the evaluation and management of left scrotal swelling. He has been struggling with lower abdominal and left groin/testicle pain for about 1 year. This occurred after a heavy lifting episode with immediate pain following. Since then he has had dull aching pain in the pelvis, lower back, He underwent a scrotal ultrasound on 03/10/2023 which was unremarkable. He was evaluated by a general surgeon as well who told him he did not have a hernia. He has also been having difficulties sustaining erections over the last year. He is not on medical therapy. Jose Lovett MD [address] [place] [address],[address], [place], [address], [facility] 04/07/2023 08:59:35
--- OUTSIDE RECORDS SUMMARY | 2023-05-11 12:53 | XMS_ITS | Continuity of Care Document ---
Author Name Unknown Address [address] [place] [address] Phone [phone] Organization [facility] , [facility] Address [address] [address] Care Team Providers Care Grape Crusher Name Role Phone [facility] Primary Care Pr ovider Assessment Encounter Date [...] - Please contact patient to schedule [facility] [place], [address], 09:05:23 Procedures None recorded. Surgeries None recorded. Imaging None recorded. Medication Orders sildenafil 50 mg tablet 2023 [facility], [address] [facility], [place], [address], 09:01:14 Patient TargetsNo targets recorded. Patient Instructions Encounter Date Encounter Id Patient Instructions Last Modified By Organization Details Last Modified Time 04/07/2023 [id number] Pelvic floor dysfunction/testicle pain: I suspect this [...] Swelling of scrotum Active 4 Stefano lozano [facility] 04/07/2023 08:51:39 Pain of left testicle Active 4 Stefano Meath marta [facility] 04/07/2023 08:51:52 Problem Notes None recorded. Medical Equipment None Reported. [...] Details Last Updated DateTime 04/07/2023 28.1 kg/m2 31432.19182 82658 g 175.26 cm Not Available Health Note [...] problems or disability Medical History Condition Response Diabetes N Sexually Transmitted Infection N Bleeding Disorder N High Blood Pressure N Kidney Stones N Cancer N Lung Disease N Depression N High Cholesterol N GERD/Acid Reflux N Heart Disease N Past Encounters Encounter ID Performer Location Encounter Start Date Encounter Closed Date Diagnosis/Indication [id number] Jose Lovett MD [facility] [address] [facility],[address] [place] [address] 04/07/2023 08:42:21 04/07/2023 09:00:25 Swelling of scrotum Pain of left testicle Pelvic floor dysfunction Erectile dysfunction Health Concerns Section Related Observation LastModified by Organization Detai ls LastModified Time None Recorded Concern Status LastModified by Organization Details LastModified Time None Recorded Payers Encounter Date Sequence Insurance [...] not on medical therapy. Jose Lovett MD [address] [place] [address],[address], [place], [address], [facility] 04/07/2023 08:59:35
--- NOTE | 2023-05-11 13:00 | CRLHL7_ITS ---
For Patients: As a result of the Century Cures Act, medical imaging exams and procedure reports are released immediately into your electronic medical record. You may view this report before your referring provider. If you have questions, please contact your health care provider. INDICATION: Low back pain. TECHNIQUE: Multiplanar multisequence noncontrast MR images of the lumbar spine. COMPARISON: Lumbar spine radiographs 05/03/2023. FINDINGS: Straightening of the lumbar lordosis. Vertebral heights maintained. No acute fracture or spondylolisthesis. No T1 hypointense lesions. Normal conus terminates at L1. T12-L1 through L3-4: No spinal canal or neural foraminal narrowing. L4-5: Shallow posterior disc bulge. Endplate spondylitic ridging. Jksx-md-ipyqwcwy facet arthropathy. Mild edema in the articulating facets and periarticular soft tissues. Minimal spinal canal narrowing. Mild narrowing of the lateral recesses. Pqvl-uu-hefnnsay left and mild right neural foraminal narrowing. L5-S1: Postsurgical changes of anterior fusion. Mild facet arthropathy. No spinal canal or neural foraminal narrowing. IMPRESSION: 1. At L4-5, wpjp-uv-nksbuokj left and mild right neural foraminal narrowing. Mild narrowing of the lateral recesses. Vyqc-qz-sdtygszq facet arthropathy. Mild edema within the articulating facets and periarticular soft tissues is most compatible with a stress response. 2. At L5-S1, postsurgical changes of anterior fusion. Dictated by Santos Rodriguez MD @ 05/11/2023 6:55:46 PM (Electronically Signed)
== END 2023-05-11 12:51 | disposition home or self-care (01) ==
LOC: MRI 12:51
PROVIDERS: PCP Nurse Practitioner Family; Visit Provider Nurse Practitioner Family
DX: M54.50 Low back pain, unspecified (principal); M51.26 Other intervertebral disc displacement, lumbar region; R10.30 Lower abdominal pain, unspecified
CPT/HCPCS: 72148

== ENCOUNTER 2023-08-31 23:45 | Emergency (ER) | payer BC, MEDICARE, SELFPAY ==
[2023-08-31 23:51] VITALS: BP 131/84; PULSE 97; RESP 16; TEMP 37.3; O2SAT 98; BMI 28.8
--- NOTE | 2023-08-31 23:57 | CRLHL7_ITS ---
For Patients: As a result of the Century Cures Act, medical imaging exams and procedure reports are released immediately into your electronic medical record. You may view this report before your referring provider. If you have questions, please contact your health care provider. INDICATION: Lower abdominal pain. TECHNIQUE: CT of the abdomen and pelvis acquired with 95 cc Isovue 370 IV contrast. Coronal and sagittal reconstructions. COMPARISON: None. FINDINGS: The liver, gallbladder, spleen, pancreas, and adrenal glands are negative. No biliary dilation. Hepatic and portal veins are patent. Symmetric enhancement of the kidneys. No hydronephrosis or ureteral dilation. No obstructing urinary calculi identified. No bladder wall thickening. Nonenlarged prostate gland. No small bowel dilation. Mild amount of stool throughout the colon. Colonic diverticulosis. There is wall thickening of the proximal sigmoid colon with surrounding inflammatory fat stranding. Findings are compatible with acute diverticulitis. Trace free fluid in the pelvis. No intraperitoneal free air or evidence of abscess. Negative appendix. Small fat containing umbilical hernia. Metallic clip or coil in the left lower quadrant. Aortoiliac vascular calcifications. No lymphadenopathy. Minimal bibasilar atelectasis or scarring. Anterior instrumented fusion of L5-S1. IMPRESSION: Acute uncomplicated diverticulitis of the proximal sigmoid colon. No evidence of perforation or abscess. Please note that all CT scans at this facility use dose modulation, iterative reconstruction, and/or weight-based dosing when appropriate to reduce radiation dose to as low as reasonably achievable. Dictated by Melissa Bangura MD @ 09/01/2023 1:14:15 AM (Electronically Signed)
[2023-09-01] MEDS: KETOROLAC 30 MG/ML inj IVP (00:05)
--- NOTE | 2023-09-01 00:07 | ED_ITS ---
HPI - Abdominal Pain General Chief Complaint: Abdominal Pain Stated Complaint: severe abdominal pain Time Seen by Provider: 08/31/23 23:52 History of Present Illness HPI narrative: Patient is a 47-year-old gentleman who is healthy and takes no home medications who presents with bilateral lower abdominal pain of 36 hours duration. Pain is severe and sharp. He has no radiation of the pain. He has had no fevers no chills no night sweats no cough no shortness of breath no dysuria. He was in approximately year and half ago with testicular pain which is resolved. Patient has taken 2 adult strength aspirin with no improvement. No other concerns other than recent episode of diarrhea without vomiting. No blood in his diarrhea. 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 Smoking Status: Current every day smoker What tobacco products do you use: cigarettes Smoking packs per day: 0.25 Smoking cigarettes per day: 5.0 Years smoked: 34 Smoking pack-years: 8.50 Do you use any of these nicotine containing products: Vaping Products Second hand tobacco smoke exposure: Yes How often do you have a drink containing alcohol: never How often do you have six or more drinks on one occasion: Never AUDIT-C Alcohol total score: 0 Non-prescribed substance use: denies use Little interest or pleasure in doing things: not at all Feeling down, depressed, or hopeless: not at all service: No Exam Narrative: Exam Narrative: EXAM GENERAL: Patient appears uncomfortable. EYES: No scleral icterus. LYMPH: No supraclavicular or cervical lymphadenopathy. SKIN: Visible skin seen during exam normal or with benign process only. EXT: No dependent lower extremity pedal edema. HEART: Regular rate and rhythm with no murmurs, rubs, or gallops. LUNGS: Clear to auscultation bilaterally with no crackles or wheezes. ABD: Primarily soft with hypoactive but present bowel sounds bilaterally. PSYCH: Good eye contact, speech is not pressured. Const: Vital Signs, click to edit/add: Vital Signs - 24 hr 08/31/23 23:51 Temperature 99.2 F Pulse Rate [Pulse Oximeter] 97 Respiratory Rate 16 Blood Pressure [Ri ght Upper Arm] 131/84 Pulse Oximetry 98 Oxygen Delivery Me thod Room Air Course Course ED Course: CBC CMP amylase UA pending. CT of the abdomen pelvis pending. Toradol 30 mg given IV 1 L normal saline given. Vital Signs Vital signs: Initial Vital Signs Temperature 99.2 F 08/31/23 23:51 Temperature Source Temporal Artery Scan 08/31/23 23:51 Pulse Rate 97 08/31/23 23:51 Respiratory Rate 16 08/31/23 23:51 Blood Pressure 131/84 08/31/23 23:51 Blood Pressure Mean 99 08/31/23 23:51 Blood Pressure Position Sitting 08/31/23 23:51 Pulse Oximetry 98 08/31/23 23:51 Oxygen Delivery Method Room Air 08/31/23 23:51 Vital Signs Temperature 99.2 F 08/31/23 23:51 Pulse Rate 97 08/31/23 23:51 Respiratory Rate 16 08/31/23 23:51 Blood Pressure 131/84 08/31/23 23:51 Pulse Oximetry 98 08/31/23 23:51 Oxygen Delivery Method Room Air 08/31/23 23:51 Temperature 99.2 F 08/31/23 23:51 Pulse Rate 97 08/31/23 23:51 Respiratory Rate 16 08/31/23 23:51 Blood Pressure 131/84 08/31/23 23:51 Pulse Oximetry 98 08/31/23 23:51 Oxygen Delivery Method Room Air 08/31/23 23:51 Medications Administered Medications: Generic Name Dose Route Start Last Admin Trade Name Freq PRN Reason Stop Dose Admin Sodium Chloride 1,000 mls @ 1,000 mls/hr 09/01/23 00:02 09/01/23 00:30 0.9 % Sodium Chloride 1000 Ml IV 09/01/23 01:01 1,000 mls/hr .Q1H AALIYAH Administration Ketorolac Tromethamine 30 mg 09/01/23 00:02 09/01/23 00:05 Ketorolac 30 Mg/Ml Inj IVP 09/01/23 00:03 30 mg ONCE ONE Administration MDM - Abdominal Pain MDM Narrative Medical decision making narrative: Patient is a 47-year-old gentleman comes in today with 36 hours of lower abdominal pain. He has a leukocytosis on his labs. Rest his labs unremarkable. CT of the abdomen pelvis shows acute uncomplicated diverticulitis of the proximal sigmoid colon. No perforation or abscess. Differential diagnosis included kidney stone appendicitis diverticulitis bowel obstruction inflammatory bowel disease ischemic bowel. This time I did place him on Cipro and Flagyl rest fluids Tylenol Motrin follow-up with his primary doctor in the next 4-5 days. Would recommend follow-up colonoscopy in approximately 1 month. Lab Data Labs: Lab Results 09/01/23 Range/Units 00:05 WBC 13.78 H (4.50-11.00) K/uL RBC 5.91 H (4.30-5.90) m/uL Hgb 17.4 (13.5-17.5) gm/dL Hct 50.6 (37.0-53.0) % MCV 86 (80-100) fL MCH 29 (26-34) pg MCHC 34 (32-36) gm/dL RDW [employer] [place] 12.0 (11.5-15.5) % Plt Count 196 (140-440) K/uL Neut % (Auto) 77.6 H (42.0-72.0) % Lymph % (Auto) 14.0 L (20-44) % [place] % (Auto) 6.1 (0.0-11.0) % Eos % (Auto) 0.4 (0.0-7.0) % Baso % (Auto) 0.4 (0.0-3.0) % Neut # (Auto) 10.70 H (1.7-7.0) K/uL Lymph # (Auto) 1.90 (0.90-2.90) K/uL [place] # (Auto) 0.80 (0.00-0.90) K/UL Eos # (Auto) 0.10 (0.00-0.50) K/uL Baso # (Auto) 0.10 (0.00-0.30) K/uL Abs Immat Gran (auto) 0.20 (0.00-0.30) K/uL Imm/Tot Granulo (auto) 1.5 % Sodium 138 (135-149) mmol/L Potassium 3.9 (3.6-5.1) mmol/L Chloride 105 (96-114) mmol/L Carbon Dioxide 27 (20-32) mmol/L Anion Gap 6 L (7-15) mEq/L BUN 13 (5-24) mg/dL Creatinine 1.2 (0.5-1.5) mg/dL Estimated Creat Clear 74.46 Estimated GFR 74 ml/min Glucose 111 (60-115) mg/dL Calcium 9.3 (8.4-10.6) mg/dL Total Bilirubin 1.5 (0.1-1.5) mg/dL AST 24 (12-35) U/L ALT 27 (4-50) U/L Alkaline Phosphatase 49 (40-150) U/L Total Protein 8.7 H (6.0-8.3) g/dL Albumin 5.1 H (3.3-5.0) g/dL Amylase 75 (18-89) U/L Discharge Plan Discharge Clinical Impression: Diverticulitis Patient Disposition: Home, Self-Care Condition: Stable Instructions: Diverticulitis (ED) Additional Instructions: Cipro Flagyl Tylenol Motrin Rest Fluids Follow up with your doctor next week. Activity Level: No Restrictions Discharge Diet: Regular Prescriptions: No Action No Known Home Medications Follow Up/Referrals: Rosa Interiano, AVIATION PROJECT MANAGER [Primary Care Provider] - Stand Alone Forms: [employer] Info Instructions
[2023-09-01 00:16] LABS: Basophils Percent Auto 0.4 % (0.0-3.0); Eosinophils Percent Auto 0.4 % (0.0-7.0); Hematocrit 50.6 % (37.0-53.0); Hemoglobin* 17.4 gm/dL (13.5-17.5); Immature Granulocytes Pct Auto 1.5 %; Mean Corpuscular HGB Conc 34 gm/dL (32-36); Mean Corpuscular Hemoglobin 29 pg (26-34); Mean Corpuscular Volume 86 fL (80-100); Monocytes Percent Auto 6.1 % (0.0-11.0); Neutrophils Percent Auto 77.6 % (42.0-72.0); Platelet Count* 196 K/uL (140-440); Red Blood Count 5.91 m/uL (4.30-5.90); White Blood Count* 13.78 K/uL (4.50-11.00)
[2023-09-01 00:17] LABS: Slide Review Reflex No
--- OUTSIDE RECORDS SUMMARY | 2023-09-01 00:17 | XMS_ITS | Referral Summary ---
Author Organization [place] Address [address] [facility] [place] [address] Care Team Providers Care Process Designer Name Role Phone No Ref-Primary, Physician Primary [...] CDT Plan of Treatment Not on file Procedures Procedure Name Priority Date/Time Associated Diagnosis Comments COMPREHENSIVE METABOLIC PANEL Routine 07/12/2022 9:56 AM CDT Abdominal pain, left side -- suspect hernia from Last 3 Months or Most Recently Relevant to Health Maintenance Results * (ABNORMAL) Comprehensive metabolic panel (07/12/2022 [...] 10:05 PM CDT [facility] Comment:eGFR calculated usin 2020 CKD-EPI equation. Blood BLOOD SPECIMEN / Unknown Venipuncture / Unknown 07/12/2022 9:56 AM CDT 07/12/2022 10:04 AM CDT Emily Rucker MD LAB - B LOOD ORDERABLES [facility] [place] [facility] [address] [facility] [address], [address] [place] [address], [facility] [phone] from Last 3 Months or Most Recently Relevant to Health Maintenance Care Teams Process Designer Relationship Specialty Start Date End Date No Ref-Primary, Physician PCP - General 07/12/22 Emily Rucker MD [address] [place] [address] Assigned PCP 06/16/22
--- OUTSIDE RECORDS SUMMARY | 2023-09-01 00:17 | XMS_ITS | Clinical Summary ---
Author Organization [place] Address [address] [place] [address]. [place] [address] Care Team Providers Care Event Av Operator Name Role Phone No Ref-Primary, Physician Primary [...] COLONOGRAPHY 1973 FIT 1973 FLEX SIG 1973 YEARLY PREVENTIVE VISIT 1973 sDNA (Cologuard) 1973 Pneumococcal Vaccine: Pediatrics (0 to 5 Years) and At-Risk Patients (6 to 64 Years) (1 of 2 - PCV) 11/22/1979 COLONOSCOPY 11/22/1983 COLORECTAL CANCER SCREENING 11/22/1983 HIV SCREENING 1988 HEPATITIS C SCREENING 11/22/1991 HEPATITIS B IMMUNIZATION (1 of 3 - 19+ 3-dose series) 1992 DTAP/TDAP/TD IMMUNIZATION (1 - Tdap) 1998 LIPID 2013 COVID-19 Vaccine (1 - 2022-2 4 season) 2022 PHQ-2 (once per calendar year) 2023 07/12/2022 ZOSTER IMMUNIZATION (1 of 2) 11/22/2023 INFLUENZA VACCINE (Season Ended) 2023 GLUCOSE 07/12/2025 07/12/2022 ADVANCE CARE PLANNING 07/13/2027 07/12/2022 (Decline d) HPV IMMUNIZATION Aged Out No longer e [...] on patient's age to complete this topic Procedures Procedure Name Priority Date/Time Associated Diagnosis [...] LAB - B LOOD ORDERABLES [facility] [place] [facility] [address] [facility] [address] [facility], [address] [place] [address], [facility] [phone] from Last 3 Months or Most Recently Relevant to Health Maintenance Care Teams Event Av Operator Relationship Specialty Start Date End Date No Ref-Primary, Physician PCP - General 07/12/22 Emily Rucker MD [address] [place] [address] Assigned PCP 06/16/22
--- OUTSIDE RECORDS SUMMARY | 2023-09-01 00:17 | XMS_ITS | Data Portability ---
Author Organization [facility], [facility] Address [address] [place] [address] Care Team Providers Care Divider Operator Name Role Phone [facility] Primary Care Pr ovider Assessment [...] - Please contact patient to schedule 2023 024 [email or web address] [facility], [address] [place] [address], [address], 14:06:14 Procedures None recorded. Surgeries None recorded. Imaging None recorded. Medication Orders sildenafil 50 mg tablet 2023 024 [facility], [address] [place] [address], [address], 09:01:14 Patient TargetsNo targets recorded. Patient Instructions Encounter Date Encounter Id Patient Instructions Last Modified By Organization Details Last Modified Time 04/07/2023 [id number] Pelvic floor dysfunction/testicle pain: I suspect this [...] Time Swelling of scrotum Active 4 Stefano Meath marta, [facility] 04/07/2023 08:51:39 Pain of left testicle Active 4 Stefano Meath null, [facility] 04/07/2023 08:51:52 Problem Notes None recorded. Procedures Surgical History None recorded. Imaging Results Imaging Date Name Status LastModified by Organiz ation Details LastModified Time 03/10/2023 [email or web address] Information n ot available 04/07/2023 07:48:15 Procedure [...] Details Last Updated DateTime 04/07/2023 28.1 kg/m2 55984.92164 99208 g 175.26 cm Not Available Health Note [...] Pressure N Kidney Stones N Depression N Sexually Transmitted Infection N Cancer N Bleeding Disorder N Lung Disease N GERD/Acid Reflux N High Cholesterol N Diabetes N Heart Disease N Past Encounters Encounter ID Performer Location Encounter Start Date Encounter Closed Date Diagnosis/Indication Diagnosis SNOMED-CT Code [id number] Jose Lovett MD [facility] [address] [place] [address],[address] [place] [address] 04/07/2023 08:42:21 04/07/2023 09:00:25 Swelling of scrotum [id number] Pain of left testicle 16 [id number] Pelvic blanka or dysfunction [id number] Erectile dysfunction 860 [id number] Health Concerns Section Related Observation LastModified by [...] not on medical therapy. Jose Lovett MD [address] [place] [address],[address], [place], [address], [facility] 04/07/2023 08:59:35
--- OUTSIDE RECORDS SUMMARY | 2023-09-01 00:17 | XMS_ITS | Clinical Summary ---
Author Organization [facility] Address [place], [place] [address] Care Team Providers Care Organizational Research Consultant Name Role Phone Pcp, No Primary Care Provider Unavailabl e Allergies Active Allergy Reactions Criticality Noted Date Comments Penicillins Rash 03/01/2023 Medications No known medications Encounters Date Type Department Care Team Description 06/13/2023 Telephone [facility] [address] [place] [address] Pcp, No Appointment Request from Last 3 Months Social History Tobacco [...] Comments Blood Pressure 124/88 03/01/2023 11:30 AM KICK PLATE INSTALLER Pulse 75 03/01/2023 11:27 AM KICK PLATE INSTALLER Temperature 36.7 ??C (98 ??F) 03/01/2023 11:27 AM KICK PLATE INSTALLER Respiratory Rate - - Oxygen Saturation 98% 03/01/2023 11:27 AM KICK PLATE INSTALLER Inhaled Oxygen Concentration - - Weight 87.4 kg (192 lb 9.6 oz) 03/01/2023 11:27 AM KICK PLATE INSTALLER Height - - Body Mass Index - - Plan of Treatment Health Maintenance Due Date Last Done Comments Pneumococcal series for age 6-64 (1 of 2 - PCV) 1979 Tdap 1984 Depression screening for age 12+ 1985 HIV for age 15-65 1988 BMI (ht and wt on same day) for age 18+ 11/22/1991 Hepatitis C screening for age 18-79 11/22/1991 Tetanus booster 1993 Colonoscopy through age 75 2018 Lipids for age 45-75 2018 COVID-19 vaccine series (2022-24 season) 3 Influenza for age 9-49 12/04/2023 Care Teams Organizational Research Consultant Relationship Specialty Start Date End Date Pcp, No . PCP - General 02/27/23
[2023-09-01] MEDS: 0.9 % SODIUM CHLORIDE 1000 ml 1,000 ML IV (00:30)
[2023-09-01 00:43] LABS: Albumin* 5.1 g/dL (3.3-5.0); Chloride* 105 mmol/L (96-114); Potassium* 3.9 mmol/L (3.6-5.1); Sodium* 138 mmol/L (135-149)
[2023-09-01 00:45] LABS: Amylase* 75 U/L (18-89); Anion Gap 6 mEq/L (7-15); Carbon Dioxide* 27 mmol/L (20-32); Creatinine* 1.2 mg/dL (0.5-1.5); Est. Creatinine Clearance* 74.46; Estimated Glomerular Filt Rate 74 ml/min
[2023-09-01 00:46] LABS: Alanine Aminotransferase* 27 U/L (4-50); Alkaline Phosphatase* 49 U/L (40-150); Aspartate Amino Transferase* 24 U/L (12-35); Bilirubin Total* 1.5 mg/dL (0.1-1.5); Blood Urea Nitrogen* 13 mg/dL (5-24); Calcium* 9.3 mg/dL (8.4-10.6); Glucose* 111 mg/dL (60-115); Total Protein* 8.7 g/dL (6.0-8.3)
[2023-09-01 01:05] VITALS: TEMP 37.3
[2023-09-01 01:30] VITALS: BP 122/78; BP 131/84; PULSE 84; PULSE 97; RESP 16; TEMP 37.3; O2SAT 98
== END 2023-09-01 01:30 | disposition home or self-care (01) ==
PROVIDERS: Emergency Provider Internal Medicine; PCP Nurse Practitioner Family
DX: K57.32 Diverticulitis of large intestine without perforation or abscess without bleeding (principal)
CPT/HCPCS: 36415; 74177; 80053; 81003; 82150; 85025; 96374; 99283; 99284; J1885; J7030; Q9967

== ENCOUNTER 2023-10-07 22:49 | Emergency (ER) | payer BC, SELFPAY ==
[2023-10-07 22:58] VITALS: BP 136/90; PULSE 85; RESP 16; TEMP 36.3; O2SAT 95; BMI 28.8
[2023-10-07 23:58] VITALS: PULSE 84; RESP 16; O2SAT 98
--- OUTSIDE RECORDS SUMMARY | 2023-10-08 00:07 | XMS_ITS | Clinical Summary ---
Author Organization [facility] Address [place], [place] [address] Care Team Providers Care Java Application Developer Name Role Phone Pcp, No Primary Care Provider Unavailabl e Allergies Active Allergy Reactions Criticality Noted Date Comments Penicillins Rash 03/01/2023 Medications No known medications Social History Tobacco [...] Comments Blood Pressure 124/88 03/01/2023 11:30 AM SCRAP IRON LOADER Pulse 75 03/01/2023 11:27 AM SCRAP IRON LOADER Temperature 36.7 ??C (98 ??F) 03/01/2023 11:27 AM SCRAP IRON LOADER Respiratory Rate - - Oxygen Saturation 98% 03/01/2023 11:27 AM SCRAP IRON LOADER Inhaled Oxygen Concentration - - Weight 87.4 kg (192 lb 9.6 oz) 03/01/2023 11:27 AM SCRAP IRON LOADER Height - - Body Mass Index - [...] Influenza for age 9-49 12/04/2023 Care Teams Java Application Developer Relationship Specialty Start Date End Date Pcp, No . PCP - General 02/27/23
--- OUTSIDE RECORDS SUMMARY | 2023-10-08 00:07 | XMS_ITS | Referral Summary ---
Author Organization [facility] Address [address] [facility] [place] [address] Care Team Providers Care Heddle Machine Operator Name Role Phone No Ref-Primary, Physician [...] MD LAB - B LOOD ORDERABLES LABORATORY [facility] [place] [facility] [address] [facility] [address], [address] [place] [address], [facility] [phone] from Last 3 Months or Most Recently Relevant to Health Maintenance Care Teams Heddle Machine Operator Relationship Specialty Start Date End Date No Ref-Primary, Physician PCP - General 07/12/22 Emily Rucker MD [address] [place] [address] Assigned PCP 06/16/22
--- OUTSIDE RECORDS SUMMARY | 2023-10-08 00:07 | XMS_ITS | Clinical Summary ---
Author Organization [facility] Address [address] [place] [address]. [place] [address] Care Team Providers Care Lime Kiln Worker Helper Name Role Phone No Ref-Primary, Physician Primary [...] LAB - B LOOD ORDERABLES [facility] LAB[facility]AT[facility] [place] [facility] [address] [facility], [address] [place] [address], [facility] [phone] from Last 3 Months or Most Recently Relevant to Health Maintenance Care Teams Lime Kiln Worker Helper Relationship Specialty Start Date End Date No Ref-Primary, Physician PCP - General 07/12/22 Emily Rucker MD [address] [place] [address] Assigned PCP 06/16/22
--- OUTSIDE RECORDS SUMMARY | 2023-10-08 00:08 | XMS_ITS | Data Portability ---
Author Organization [facility], [facility] Address [address] [place] [address] Care Team Providers Care Physicist Solid State Name Role Phone [facility] Primary Care Pr ovider Assessment Encounter Date [...] Please contact patient to schedule 2023 024 [facility], [address] [place] [address], [address], 14:06:14 Procedures None recorded. Surgeries None recorded. Imaging None recorded. Medication Orders sildenafil 50 mg tablet 2023 024 [facility], [place], [facility], [address] [place] [address], [address], 09:01:14 Patient TargetsNo targets recorded. Patient Instructions Encounter Date Encounter Id Patient Instructions Last Modified By Organization Details Last Modified Time 04/07/2023 [id number] Pelvic floor dysfunction/testicle pain: I suspect this [...] Recorded Time Swelling of scrotum Active 4 Steafno Meath marta, [facility] 04/07/2023 08:51:39 Pain of left testicle Active 4 Stefano Meath null, [facility] 04/07/2023 08:51:52 Problem Notes None recorded. Procedures Surgical History None recorded. Imaging Results Imaging Date Name Status LastModified by Organiz ation Details LastModified Time 03/10/2023 US, [email or web address] Information n ot available 04/07/2023 07:48:15 Procedure [...] Details Last Updated DateTime 04/07/2023 28.1 kg/m2 63202.83871 28231 g 175.26 cm Not Available Health Note [...] [email or web address] Information no t available 04/03/2023 Sex: Unknown Functional Status None recorded. Mental Status None recorded. Family History Relationship Description Onset Age of this Age Resolved Age Notes Father No current problems or disability Mother No current problems or disability Medical History Condition Response High Blood Pressure N Kidney Stones N Depression N Lung Disease N GERD/Acid Reflux N Sexually Transmitted Infection N Cancer N High Cholesterol N Diabetes N Bleeding Disorder N Heart Disease N Past Encounters Encounter ID Performer Location Encounter Start Date Encounter Closed Date Diagnosis/Indication Diagnosis SNOMED-CT Code [id number] Jose Lovett MD [facility] [address] [place] [address],[address] [place] [address] 04/07/2023 08:42:21 04/07/2023 09:00:25 Swelling of scrotum 318987894 Pain of left testicle 16 [id number] 00 Pelvic blanka or dysfunction 267778185 Erectile dysfunction 860 096320 Health Concerns Section Related Observation LastModified by [...] not on medical therapy. Jose Lovett MD [address] [place] [address],[address], [place], [address], [facility] 04/07/2023 08:59:35
--- NOTE | 2023-10-08 00:12 | ED.DENTAL ---
HPI - Dental/Oral General Time Seen by Provider: 23:55 Date Seen: 10/07/23 Chief complaint: Dental/Oral/Mouth Injury/Pain Stated complaint: abscess tooth R side Time Seen by Provider: 10/08/23 00:11 Source: patient, family and RN notes reviewed Mode of arrival: ambulatory Limitations: no limitations History of Present Illness HPI Narrative: Patient has his right posterior upper molar that he thinks is abscess. Started causing him pain on Tuesday. He started noting swelling around the tooth. He has had no fevers or chills. On his way in here he believes that abscess popped and started to drain, he has tasted purulence material from the tooth. The puffiness or fluctuance that was around the tooth has resolved. Patient is questioned on his antibiotic allergy. He states there has maybe history of rash with penicillin but he is adamant that he has taken amoxicillin multiple times without any complication at all. He notes he has taken it for dental issues before. He states he has no rash, no reaction to amoxicillin. MD Complaint: tooth pain Location: Tooth # (1) Related Data Previous Rx's ?Medication ?Instructions ?Recorded peg 3350-electrolytes 236 240 ml PO Q10M #4,000 mL 09/16/23 gram-22.74 gram-6.74 gram-5.86 gram solution (Golytely) Allergies Allergy/AdvReac Type Severity Reaction Status Date / Time Penicillins Allergy Verified 09/15/23 11:03 Review of Systems Narrative: As per HPI. 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 Smoking Status: Current every day smoker What tobacco products do you use: cigarettes Smoking packs per day: 0.25 Smoking cigarettes per day: 5.0 Years smoked: 34 Smoking pack-years: 8.50 Do you use any of these nicotine containing products: Vaping Products Second hand tobacco smoke exposure: Yes How often do you have a drink containing alcohol: never How often do you have six or more drinks on one occasion: Never AUDIT-C Alcohol total score: 0 Non-prescribed substance use: denies use Little interest or pleasure in doing things: not at all Feeling down, depressed, or hopeless: not at all service: No Exam Const: Vital Signs, click to edit/add: Vital Signs - 24 hr 10/07/23 22:58 Temperature 97.4 F L Pulse Rate [Left P ulse Oximeter] 85 Respiratory Rate 16 Blood Pressure [Ri ght Upper Arm] 136/90 H Pulse Oximetry 95 Oxygen Delivery Me thod Room Air Patient is a 47-year-old male that is alert, interactive, no apparent stress. Speaking in complete sentences, face atraumatic, no swelling noted. Lips are normal. On inspection of his oropharynx, there is maybe a little erythema around the right upper posterior molar, he is tender when I palpate along the gumline but there is no fluctuance, do not seen drainage. Rested mucosa is normal, posterior pharynx normal. Neck is supple, no adenopathy. CV regular rate and rhythm, no murmur. Documenting provider has reviewed patient's vital signs: yes Course Course ED Course: This patient obviously has an abscessed tooth. He is aware that he needs to see a dentist for definitive management. Will initiate amoxicillin from [facility]. Tylenol and ibuprofen as needed for pain control, follow bottle directions. Vital Signs Vital signs: Initial Vital Signs Temperature 97.4 F L 10/07/23 22:58 Temperature Source Temporal Artery Scan 10/07/23 22:58 Pulse Rate 85 10/07/23 22:58 Pulse Rhythm Regular 10/07/23 22:58 Respiratory Rate 16 10/07/23 22:58 Blood Pressure 136/90 H 10/07/23 22:58 Blood Pressure Mean 105 10/07/23 22:58 Blood Pressure Position Sitting 10/07/23 22:58 Pulse Oximetry 95 10/07/23 22:58 Oxygen Delivery Method Room Air 10/07/23 22:58 Vital Signs Temperature 97.4 F L 10/07/23 22:58 Pulse Rate 85 10/07/23 22:58 Respiratory Rate 16 10/07/23 22:58 Blood Pressure 136/90 H 10/07/23 22:58 Pulse Oximetry 95 10/07/23 22:58 Oxygen Delivery Method Room Air 10/07/23 22:58 Temperature 97.4 F L 10/07/23 22:58 Pulse Rate 85 10/07/23 22:58 Respiratory Rate 16 10/07/23 22:58 Blood Pressure 136/90 H 10/07/23 22:58 Pulse Oximetry 95 10/07/23 22:58 Oxygen Delivery Method Room Air 10/07/23 22:58 Critical Care Time Critical Care Time Critical Care Time: No Discharge Plan Discharge Clinical Impression: Dental abscess Patient Disposition: Home, Self-Care Condition: Stable Instructions: Dental Abscess (ED) Additional Instructions: Start amoxicillin tonight, 500 mg 3 times a day for 10 days. You absolutely need to see a dentist as soon as possible. If you are having discomfort, can use Tylenol and/or ibuprofen alternating, follow bottle directions for dosing instructions. If your infection is worsening, develops fevers, increased facial swelling, do recommend re-evaluation. Activity Level: Activity as Tolerated Discharge Diet: Regular Prescriptions: No Action peg 3350-electrolytes [Golytely] 236-22.74-6.74 -5.86 gram recon soln 240 ml PO Q10M Qty: 4000 0RF Rx Instructions: until fecal effluent is clear Follow Up/Referrals: Rosa Interiano PATIENT CARE NURSING ASSISTANT [Primary Care Provider] - Stand Alone Forms: MyHealth Info Instructions
== END 2023-10-08 00:23 | disposition home or self-care (01) ==
PROVIDERS: Emergency Provider Family Medicine; PCP Nurse Practitioner Family
DX: R68.84 Jaw pain (principal); K04.7 Periapical abscess without sinus
CPT/HCPCS: 99282; 99283; 99284

== ENCOUNTER 2023-10-20 12:20 | Outpatient (CLI) | payer BC, MEDICARE, SELFPAY ==
--- OUTSIDE RECORDS SUMMARY | 2023-10-20 12:22 | XMS_ITS | Clinical Summary ---
Author Organization [place] Address [address] [place] [address]. [place] [address] Care Team Providers Care Boarding Mother Name Role Phone No Ref-Primary, Physician Primary [...] LAB - B LOOD ORDERABLES [facility] LAB[facility]ATORY [facility] [place] [facility] [address] [facility] [address] [facility], [address] [place] [address], [facility] [phone] from Last 3 Months or Most Recently Relevant to Health Maintenance Care Teams Boarding Mother Relationship Specialty Start Date End Date No Ref-Primary, Physician PCP - General 07/12/22 Emily Rucker MD [address] [place] [address] Assigned PCP 06/16/22
--- OUTSIDE RECORDS SUMMARY | 2023-10-20 12:22 | XMS_ITS | Data Portability ---
Author Organization [facility], [facility] Address [address] [place] [address] Care Team Providers Care Crane Helper Name Role Phone [facility] Primary Care Pr ovider Assessment Encounter [...] Please contact patient to schedule 2023 024 [email or web address] [facility], [address] [place] [address], [address], 14:06:14 Procedures None recorded. Surgeries None recorded. Imaging None recorded. Medication Orders sildenafil 50 mg tablet 2023 024 [facility], [address] [place] [address], [address], 09:01:14 Patient TargetsNo targets recorded. Patient Instructions Encounter Date Encounter Id Patient Instructions Last Modified By Organization Details Last Modified Time 04/07/2023 [id number] Pelvic floor dysfunction/testicle pain: I suspect this [...] of scrotum Active 4 Stefano Meath marta, [facility] 04/07/2023 08:51:39 Pain of left testicle Active 4 Stefano Meath null, [facility] 04/07/2023 08:51:52 Problem Notes None recorded. Procedures Surgical History None recorded. Imaging Results Imaging Date Name Status LastModified by Organiz ation Details LastModified Time 03/10/2023 [email or web address] Information n ot available 04/07/2023 07:48:15 [...] Details Last Updated DateTime 04/07/2023 28.1 kg/m2 26534.15118 88836 g 175.26 cm Not Available Health Note [...] Encounter Closed Date Diagnosis/Indication Diagnosis SNOMED-CT Code [id number] Jose Lovett MD [facility] [address] [place] [address],[address] [place] [address] 04/07/2023 08:42:21 04/07/2023 09:00:25 Swelling of scrotum 084843505 Pain of left testicle 16 [id number] 00 Pelvic blanka or dysfunction 949063675 Erectile dysfunction 860 885278 Health Concerns Section Related Observation LastModified by [...] not on medical therapy. Jose Lovett MD [address] [place] [address],[address], [place], [address], [facility] 04/07/2023 08:59:35
--- OUTSIDE RECORDS SUMMARY | 2023-10-20 12:22 | XMS_ITS | Clinical Summary ---
Author Organization [facility] Address [place], [place] [address] Care Team Providers Care Tank Carpenter Name Role Phone Pcp, No Primary Care [...] Comments Blood Pressure 124/88 03/01/2023 11:30 AM CENTER MEDICAL AND LAB DIRECTOR Pulse 75 03/01/2023 11:27 AM CENTER MEDICAL AND LAB DIRECTOR Temperature 36.7 ??C (98 ??F) 03/01/2023 11:27 AM CENTER MEDICAL AND LAB DIRECTOR Respiratory Rate - - Oxygen Saturation 98% 03/01/2023 11:27 AM CENTER MEDICAL AND LAB DIRECTOR Inhaled Oxygen Concentration - - Weight 87.4 kg (192 lb 9.6 oz) 03/01/2023 11:27 AM CENTER MEDICAL AND LAB DIRECTOR Height - - Body Mass Index - [...] Influenza for age 9-49 12/04/2023 Care Teams Tank Carpenter Relationship Specialty Start Date End Date Pcp, No . PCP - General 02/27/23
--- OUTSIDE RECORDS SUMMARY | 2023-10-20 12:22 | XMS_ITS | Referral Summary ---
Author Organization [facility] Address [address] [facility] [place] [address] Care Team Providers Care Pbx Supervisor Name Role Phone No Ref-Primary, Physician [...] MD LAB - B LOOD ORDERABLES LABORATORY [facility] [place] [facility] [address] [facility] [address], [address] [place] [address], [facility] [phone] from Last 3 Months or Most Recently Relevant to Health Maintenance Care Teams Pbx Supervisor Relationship Specialty Start Date End Date No Ref-Primary, Physician PCP - General 07/12/22 Emily Rucker MD [address] [place] [address] Assigned PCP 06/16/22
--- NOTE | 2023-10-20 13:32 | W.ANESCHARGE ---
Anesthesia Charges Start Date/Time Anesthesia Start Date: 10/20/23 Anesthesia Start Time: 13:18 Stop Date/Time Anesthesia Stop Date: 10/20/23 Anesthesia Stop Time: 13:53
--- NOTE | 2023-10-20 13:54 | W.ANESCHARGE ---
Anesthesia Charges Start Date/Time Anesthesia Start Date: 10/20/23 Anesthesia Start Time: 13:18 Stop Date/Time Anesthesia Stop Date: 10/20/23 Anesthesia Stop Time: 13:53
== END 2023-10-20 12:21 | disposition home or self-care (01) ==
LOC: OP CLINIC 12:21
PROVIDERS: PCP Nurse Practitioner Family; Visit Provider Surgery
DX: Z12.11 Encounter for screening for malignant neoplasm of colon (principal); K63.3 Ulcer of intestine; K64.4 Residual hemorrhoidal skin tags; Z83.719 Family history of colon polyps, unspecified
CPT/HCPCS: 00811; 45380; 88305; J2704

== ENCOUNTER 2024-03-26 07:50 | Outpatient (CLI) | payer BC, SELFPAY ==
--- NOTE | 2024-03-26 08:00 | CRLHL7_ITS ---
For Patients: As a result of the Century Cures Act, medical imaging exams and procedure reports are released immediately into your electronic medical record. You may view this report before your referring provider. If you have questions, please contact your health care provider. Indication: LT SIDED PELVIC PAIN, POSSIBLE SPORTS HERNIA Technique: Noncontrast CT pelvis, soft tissue protocol Please note that all CT scans at this facility use dose modulation, iterative reconstruction, and/or weight-based dosing when appropriate to reduce radiation dose to as low as reasonably achievable. Comparison: CT 09/01/2023 Findings: The symphysis pubis is intact. No degenerative change or diastasis. No malalignment or fracture. The medial aponeurosis of the adductor musculature appears intact by CT bilaterally although this has decreased sensitivity when compared with MRI. There is no inguinal hernia present on the left. Small amount of incidental fat is present the femoral canal bilaterally without mass effect. No adenopathy. Postop changes lumbar spine. Sigmoid diverticulosis. Impression: Normal symphysis pubis. Normal adductor musculature by CT. If concern persists, an MRI could be useful for diagnosis of potential athletic pubalgia, i.e., ???sports hernia?. Please note that all CT scans at this facility use dose modulation, iterative reconstruction, and/or weight-based dosing when appropriate to reduce radiation dose to as low as reasonably achievable. Dictated by Josep Faustin MD @ 03/26/2024 8:48:47 AM (Electronically Signed)
== END 2024-03-26 07:51 | disposition home or self-care (01) ==
LOC: CT 07:51
PROVIDERS: PCP Nurse Practitioner Family; Visit Provider Surgery
DX: R10.2 Pelvic and perineal pain (principal); K57.30 Diverticulosis of large intestine without perforation or abscess without bleeding
CPT/HCPCS: 72192

== ENCOUNTER 2024-04-05 07:54 | Outpatient (CLI) | payer BC, SELFPAY ==
--- NOTE | 2024-04-05 08:15 | CRLHL7_ITS ---
For Patients: As a result of the Century Cures Act, medical imaging exams and procedure reports are released immediately into your electronic medical record. You may view this report before your referring provider. If you have questions, please contact your health care provider. INDICATION: Pelvic and perineal pain into the left side TECHNIQUE: 1.5 T MRI performed with pre and postcontrast T1 weighted imaging; T2 weighted imaging. 18 mL Dotarem administered COMPARISON: CT pelvis 03/26/2024, lumbar spine MRI 05/11/2023 FINDINGS: Pelvic organs: No definite prostate abnormality on this nondedicated scan. Bladder: Unremarkable Visualized bowel: Colonic diverticulosis. Vasculature: The iliac arteries are patent. Lymph nodes: No enlarged lymph nodes within the pelvis. Peritoneal space: No free fluid within the pelvis. Musculoskeletal: Bone marrow signal is within normal limits. Postoperative changes of the lower lumbar spine. No definite abnormality at the pubic symphysis to suggest athletic pubalgia, however this is suboptimally assessed on this exam. IMPRESSION: No acute findings. No findings to explain the patient`s pain. If clinical symptoms persist, consider further evaluation with MS protocol MRI pelvis to better evaluate for athletic pubalgia. Dictated by Alexia Elder MD @ 04/05/2024 11:31:11 AM (Electronically Signed)
== END 2024-04-05 07:55 | disposition home or self-care (01) ==
LOC: MRI 07:55
PROVIDERS: PCP Nurse Practitioner Family; Visit Provider Nurse Practitioner Family
DX: R10.2 Pelvic and perineal pain (principal)
CPT/HCPCS: 72197; A9575

== ENCOUNTER 2024-04-18 12:52 | Outpatient (CLI) | payer BC, SELFPAY ==
--- NOTE | 2024-04-18 13:00 | CRLHL7_ITS ---
For Patients: As a result of the Cures Act, medical imaging exams and procedure reports are released immediately into your electronic medical record. You may view this report before your referring provider. If you have questions, please contact your health care provider. EXAM: MRI OF THE PELVIS, WITHOUT CONTRAST CLINICAL INDICATION: Pelvic and perineal pain. COMPARISON PLAIN FILMS: None. COMPARISON CROSS-SECTIONAL IMAGING STUDIES: 04/05/2024 MRI pelvis. 03/26/2024 CT pelvis. TECHNICAL: Axial, sagittal and coronal T1, PD FS and STIR images of the pelvis. FINDINGS: PUBIC SYMPHYSIS: No degenerative changes in the pubic symphysis. No adjacent subchondral edema or inflammation. No tear or tendinopathy of the rectus abdominis and adductor aponeurosis. No muscle strain or atrophy. OSSEOUS STRUCTURES: No fracture, bone marrow contusion or stress change. No or marrow replacement process. No evidence for avascular necrosis. Postoperative changes at the lumbosacral interval. MUSCULOTENDINOUS STRUCTURES AND BURSAE: Gluteus Minimus and Medius: No tendon tear or tendinopathy. No muscle atrophy or edema. Bursae: No trochanteric or iliopsoas bursitis. Common Hamstrings: No tendon tear or tendinopathy. Other: Tendons and myotendinous junctions are intact. No muscle atrophy or edema. SOFT TISSUES: No subcutaneous edema, hematoma or fluid collection. OTHER JOINTS: Mild degenerative hypertrophic changes in the SI joints. No subchondral edema or ankylosis. The hip joints are unremarkable. INTRAPELVIC CONTENTS: No mass, fluid collection or adenopathy. No inguinal hernia. NEUROVASCULAR STRUCTURES: No abnormality of the proximal femoral or sciatic nerves. No aneurysmal dilatation of the visualize distal aorta. IMPRESSION: 1. No evidence for sports hernia or abnormalities of the pubic symphysis. 2. Mild degenerative changes in the SI joints. 3. Postoperative changes at the lumbosacral interval. Dictated by Omar Adams MD @ 04/19/2024 10:03:37 AM (Electronically Signed)
== END 2024-04-18 12:53 | disposition home or self-care (01) ==
LOC: MRI 12:53
PROVIDERS: PCP Nurse Practitioner Family; Visit Provider Nurse Practitioner Family
DX: R10.2 Pelvic and perineal pain (principal); M47.898 Other spondylosis, sacral and sacrococcygeal region
CPT/HCPCS: 72195